=== PATIENT | female | born 1955 | race Caucasian/White ===

== ENCOUNTER 2018-03-15 10:57 | Emergency (ER) | payer OTHER ==
[2018-03-15 11:45] VITALS: TEMP 97.8
--- NOTE | 2018-03-15 11:46 | ED.PDOC ---
History of Present Illness - General Chief Complaint: General Stated Complaint: sore throat, cough Time Seen by Provider: 03/15/18 11:37 Source: patient Exam Limitations: no limitations - History of Present Illness Initial Comments: Patient presets with runny nose, cough, and sore throat for one week. The nasal exudates are greenish. Cough is sometimes productive of green sputum and sometimes productive of yellow sputum. She thinks she has had a fever. She has had a pulmonary lobectomy. She smokes 1/2 ppd cigarettes. She has COPD. No other complaints. Timing/Duration: 1 week Severity: moderate Improving Factors: nothing Worsening Factors: nothing Associated Symptoms: denies symptoms Allergies/Adverse Reactions: Allergies Baclofen Allergy (Verified 03/15/18 11:37) Clindamycin Allergy (Verified 03/15/18 11:37) Hives Perphenazine Allergy (Verified 03/15/18 11:37) Unknown Sulfamethoxazole w/Trimethoprim [From Bactrim] Allergy (Verified 03/15/18 11:37) Hives Home Medications: Ambulatory Orders Albuterol Sulfate [Proair Hfa] 2 puff INH Q6H PRN 03/15/18 Amlodipine Besylate [Norvasc] 2.5 mg PO DAILY 03/15/18 Amoxicillin & Pot Clavulanate [Augmentin Tab] 875 mg PO BID #14 tab 03/15/18 Divalproex Sodium [Depakote ER] 250 mg PO BID 03/15/18 Docusate Sodium 100 mg PO BID 03/15/18 Ergocalciferol 50,000 unit PO WKLY 03/15/18 Gabapentin [Neurontin] 300 mg PO BID 03/15/18 Methocarbamol [Methocarbamol] 1,000 mg PO TID PRN 03/15/18 Mirtazapine [Mirtazapine] 30 mg PO BEDTIME 03/15/18 QUEtiapine FUMARATE [SEROquel] 25 mg PO BEDTIME 03/15/18 Review of Systems - Review of Systems Constitutional: States: see HPI EENTM: States: see HPI Respiratory: States: see HPI Cardiology: States: no symptoms reported Gastrointestinal/Abdominal: States: no symptoms reported Genitourinary: States: no symptoms reported Musculoskeletal: States: no symptoms reported Skin: States: no symptoms reported Neurological: States: no symptoms reported Endocrine: States: no symptoms reported Hematologic/Lymphatic: States: no symptoms reported Family Medical History - Family History Mother Family History: No Known Physical Exam - Physical Exam General Appearance: Alert Eye Exam: bilateral normal Ears, Nose, Throat: other - clear nasal exudates bilaterally Neck: non-tender, full range of motion, supple, lymphadenopathy (R) Respiratory: wheezing - expiratory in upper lung dey bilaterally Cardiovascular/Chest: regular rate, rhythm, no edema Gastrointestinal/Abdominal: normal bowel sounds, non tender, soft Back Exam: no CVA tenderness Extremity: normal range of motion, non-tender, normal inspection Neurologic: no motor/sensory deficits, alert, normal mood/affect, oriented x 3 Skin Exam: normal color Lymphatic: other - see above Progress - Progress Progress: 03/15/18 12:52 Patient's CXR was negative for pneumonia. CBC wnl. However, she is high risk for pneumonia and has has some intermittent dyspnea that she says responds well to her inhaler. I will treat this similarly to a COPD exacerbation but steroids are not indicated at this time. Prophylactic antibiotics are because of her increased sputum production and length of illness. Care instructions given. E.R. warnings given. Questions were elicited and answered. The patient voiced understanding and agreement with the plan. Departure - Departure Clinical Impression: Acute sinusitis, Tobacco abuse counseling Disposition: Discharge to Home or Self Care Condition: Good Departure Forms: ED Discharge - Pt. Copy, Patient Portal Self Enrollment Diet: other - as per your primary care physician Activity: increase activity as tolerated Prescriptions: Amoxicillin & Pot Clavulanate [Augmentin Tab] 875 mg PO BID #14 tab Home Medications: Ambulatory Orders Albuterol Sulfate [Proair Hfa] 2 puff INH Q6H PRN 03/15/18 Amlodipine Besylate [Norvasc] 2.5 mg PO DAILY 03/15/18 Amoxicillin & Pot Clavulanate [Augmentin Tab] 875 mg PO BID #14 tab 03/15/18 Divalproex Sodium [Depakote ER] 250 mg PO BID 03/15/18 Docusate Sodium 100 mg PO BID 03/15/18 Ergocalciferol 50,000 unit PO WKLY 03/15/18 Gabapentin [Neurontin] 300 mg PO BID 03/15/18 Methocarbamol [Methocarbamol] 1,000 mg PO TID PRN 03/15/18 Mirtazapine [Mirtazapine] 30 mg PO BEDTIME 03/15/18 QUEtiapine FUMARATE [SEROquel] 25 mg PO BEDTIME 03/15/18 Additional Instructions: Over the counter cough and cold formulas as directed. Tylenol for pain or fever control. Increase oral fluids. Take prescribed medications as directed. Return to the E.R. or your regular doctor for temperature above 100.4 or if symptoms do not resolve in 7-10 days.
[2018-03-15] MEDS ORDERED: ONDANSETRON INJ 4 MG/2 ML VIAL ONE (12:21)
--- NOTE | 2018-03-15 12:48 | RAD ---
PROCEDURE: Chest,2 Views CLINICAL HISTORY: cough INDICATION: Same as above COMPARISON: None TECHNIQUE: PA and and lateral chest radiographs were obtained. FINDINGS: There are underlying changes of COPD There are no discrete airspace infiltrates, pneumothoraces or pleural effusions. The pulmonary vascularity is normal The cardiomediastinal silhouette is unremarkable for patient's age and sex. IMPRESSION: There is no acute pleural-parenchymal process seen in the imaged lung dey. There are underlying changes of COPD Electronically signed by: Tay Sommer MD 03/15/2018 12:47 PM CDT Workstation: [id number]
[2018-03-15 13:10] VITALS: BP 118/74; O2SAT 97
== END 2018-03-15 13:02 | disposition home or self-care (01) ==
LOC: ER 10:57
DX: J01.90 Acute sinusitis, unspecified (principal); J44.9 Chronic obstructive pulmonary disease, unspecified; F17.210 Nicotine dependence, cigarettes, uncomplicated; Z79.899 Other long term (current) drug therapy; Z88.8 Allergy status to other drugs, medicaments and biological substances; Z88.1 Allergy status to other antibiotic agents; Z88.2 Allergy status to sulfonamides

== ENCOUNTER 2018-07-05 16:03 | Emergency (ER) | payer OTHER ==
--- NOTE | 2018-07-05 16:58 | ED.PDOC ---
History of Present Illness - General Chief Complaint: General Stated Complaint: sore throat, cough, headache Time Seen by Provider: 07/05/18 16:50 Source: patient Exam Limitations: no limitations - History of Present Illness Initial Comments: Crissy Ortiz 63 y/o female came to er with fever, achy throat,productive,cough,intermittent dull headache frontal area for the last 2 days.Has history of chronic bronchitis,continue to smoke 3-5 cigarettes/day.Has been using albuteol MDI for his chronic bronchitis.Her Md is SHIRA. Timing/Duration: other - 48 hours Severity: moderate Improving Factors: nothing Worsening Factors: nothing Associated Symptoms: cough, fever/chills Allergies/Adverse Reactions: Allergies Baclofen Allergy (Verified 03/15/18 11:37) Clindamycin Allergy (Verified 03/15/18 11:37) Hives Perphenazine Allergy (Verified 03/15/18 11:37) Unknown Sulfamethoxazole w/Trimethoprim [From Bactrim] Allergy (Verified 03/15/18 11:37) Hives Home Medications: Ambulatory Orders Albuterol Sulfate [Proair Hfa] 2 puff INH Q6H PRN 03/15/18 Amlodipine Besylate [Norvasc] 2.5 mg PO DAILY 03/15/18 Divalproex Sodium [Depakote ER] 500 mg PO BID 03/15/18 Gabapentin [Neurontin] 300 mg PO BID 03/15/18 Mirtazapine 30 mg PO BEDTIME 03/15/18 QUEtiapine FUMARATE [SEROquel] 50 mg PO BEDTIME 03/15/18 Atorvastatin Calcium [Lipitor] 10 mg PO DAILY 07/05/18 Ciprofloxacin [Cipro] 500 mg PO BID 7 Days #14 tab 07/05/18 Oseltamivir Capsule [Tamiflu] 75 mg PO BID 5 Days #10 capsule 07/05/18 Perphenazine 4 mg PO BEDTIME 07/05/18 Tizanidine HCl 2 mg PO TID 07/05/18 Review of Systems - Review of Systems Constitutional: States: see HPI, fever EENTM: States: see HPI, nose congestion Respiratory: States: see HPI, cough Cardiology: States: no symptoms reported Gastrointestinal/Abdominal: States: no symptoms reported Genitourinary: States: no symptoms reported Musculoskeletal: States: no symptoms reported All other Systems: Reviewed and Negative, No Change from Baseline Past Medical History (General) - Patient Medical History Hx Stroke: No Hx Dementia: No Hx of COPD: Yes Hx Congestive Heart Failure: No Hx Hypertension: Yes Hx Diabetes: No Hx Gastroesophageal Reflux: Yes Hx Cancer: Yes - R. Lung Surgical History: tonsillectomy, other - lung right;hysterectomy - Vaccination History Hx Tetanus, Diphtheria Vaccination: No Hx Influenza Vaccination: Yes Hx Pneumococcal Vaccination: Yes Immunizations Up to Date: Yes - Social History Hx Tobacco Use: Yes Hx Alcohol Use: Yes - Occasional Hx Substance Use: No Hx Substance Use Treatment: No - Female History Patient is a Female of Child Bearing Age (10 -59 yrs old): No Family Medical History - Family History Mother Living Status: Hx Family Diabetes: Yes - sister Hx Family Cancer: Yes - Brain cancer-mom;prostate -dad Hx Family;Other: Rheumatoid arthritis -sister Father Hx Family Cancer: Yes - Colon Cancer Physical Exam - Physical Exam General Appearance: Alert, Comfortable, No apparent distress, Other - using mobile device noted Eye Exam: bilateral normal Ears, Nose, Throat: hearing grossly normal, normal ENT inspection, pharyngeal erythema Neck: non-tender, full range of motion, supple Respiratory: chest non-tender, no respiratory distress, wheezing Cardiovascular/Chest: normal peripheral pulses, regular rate, rhythm, no murmur Peripheral Pulses: radial,right: 2+, radial,left: 2+ Gastrointestinal/Abdominal: normal bowel sounds, non tender, soft, no organomegaly Back Exam: no CVA tenderness, no vertebral tenderness Extremity: no pedal edema, no calf tenderness Neurologic: alert, oriented x 3 Skin Exam: normal color, warm/dry Progress - Progress Progress: 07/05/18 17:07 Vital Signs - 24 hr 07/05/18 07/05/18 16:10 16:16 Temperature 101.1 F H Pulse Rate [ 114 H 114 H Left Radial] Respiratory 20 20 Rate Blood Pressure 139/107 [Left Arm] O2 Sat by Pulse 98 Oximetry - Results/Orders Results/Orders: 07/05/18 17:05 STREP A SCREEN CULTURE Stat 07/06/18 09:00 [facility] Daily Laboratory Results - last 24 hr 07/05/18 17:05 Group A Strep Rapid Negative Discuss negative Flu test result with patient and also her flu shot which was received in december 2017 stated despite negative flu test and with immunization her immunity might have weaned of also helps take care of grand small with possible chronic medical problem. - EKG/XRAY/CT XRAY: chest - mild infiltrates Departure - Departure Clinical Impression: Acute exacerbation of chronic obstructive bronchitis Time of Disposition: 18:13 Disposition: Discharge to Home or Self Care Departure Forms: ED Discharge - Pt. Copy, Patient Portal Self Enrollment Instructions: Quitting Smoking for Older Adults, Acute Bronchitis, Adult (DC), Risk Factors for COPD Prescriptions: Ciprofloxacin [Cipro] 500 mg PO BID 7 Days #14 tab Oseltamivir Capsule [Tamiflu] 75 mg PO BID 5 Days #10 capsule Home Medications: Ambulatory Orders Albuterol Sulfate [Proair Hfa] 2 puff INH Q6H PRN 03/15/18 Amlodipine Besylate [Norvasc] 2.5 mg PO DAILY 03/15/18 Divalproex Sodium [Depakote ER] 500 mg PO BID 03/15/18 Gabapentin [Neurontin] 300 mg PO BID 03/15/18 Mirtazapine 30 mg PO BEDTIME 03/15/18 QUEtiapine FUMARATE [SEROquel] 50 mg PO BEDTIME 03/15/18 Atorvastatin Calcium [Lipitor] 10 mg PO DAILY 07/05/18 Ciprofloxacin [Cipro] 500 mg PO BID 7 Days #14 tab 07/05/18 Oseltamivir Capsule [Tamiflu] 75 mg PO BID 5 Days #10 capsule 07/05/18 Perphenazine 4 mg PO BEDTIME 07/05/18 Tizanidine HCl 2 mg PO TID 07/05/18 Additional Instructions: Continue with all home medications;Return to ER as needed;May take over the counter cough medication as directed on package insert
[2018-07-05] MEDS ORDERED: IPRATROPIUM/ALBUTEROL 3 ML VIAL NEB ONE (17:11)
--- NOTE | 2018-07-05 17:23 | RAD ---
EXAM DESCRIPTION: Chest,1 View CLINICAL HISTORY: 63 years Female, cough COMPARISON: March 15, 2018 TECHNIQUE: AP portable view FINDINGS: Mild parenchymal infiltrate has developed within the right lower lobe. Left lung is clear. Cardiac silhouette and mediastinum are unchanged. Persistent mild blunting right calcific sulcus IMPRESSION: Mild parenchymal infiltrate right lower lobe Persistent mild blunting right costophrenic sulcus Electronically signed by: Balwinder Gann 07/05/2018 5:21 PM SALES CORRESPONDENT
[2018-07-05 17:30] VITALS: O2SAT 92
[2018-07-05] MEDS ORDERED: OSELTAMIVIR 75 MG CAP PO ONE (18:07)
[2018-07-05] MEDS ORDERED: cefTRIAXone SODIUM 1 GM VIAL IM ONE (18:07)
[2018-07-05 18:32] VITALS: BP 122/71; TEMP 102
== END 2018-07-05 18:32 | disposition home or self-care (01) ==
LOC: ER 16:03
DX: J44.1 Chronic obstructive pulmonary disease with (acute) exacerbation (principal); I10 Essential (primary) hypertension; K21.9 Gastro-esophageal reflux disease without esophagitis; Z85.118 Personal history of other malignant neoplasm of bronchus and lung; Z79.899 Other long term (current) drug therapy; F17.210 Nicotine dependence, cigarettes, uncomplicated; Z88.8 Allergy status to other drugs, medicaments and biological substances
CPT/HCPCS: 36415; 71045; 87070; 87502; 87880; 94640; J0696; J7620